=== PATIENT | female | born 1935 | race Caucasian/White ===

== ENCOUNTER 2018-01-20 10:20 | Outpatient (CLI) | payer OTHER ==
[~2018-01-20] VITALS: Ht 157.5 cm; Wt 69.1 kg
--- NOTE | ~2018-01-20 | EKG ---
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 : 1935 Requested By: Sergio Jackson Order Number: [id number] MD: Denver Robison Measurements Intervals [place] Rate: 64 P: 21 CO: 226 QRS: 41 QRSD: 103 T: 20 QT: 450 QTc: 465 Interpretive Statements Sinus rhythm Prolonged [place] interval Borderline low voltage, extremity leads Nonspecific ST segment abnormality Compared to ECG 01/20/2018 17:50:52 No significant changes Electronically Signed On 01-21-2018 8:40:14 TRAFFIC II MANAGER by Denver Robison [email or web address] <ELECTRONICALLY SIGNED> By: Denver Robison MD, [facility] 01/21/1840 9 9 Denver Robison MD, [facility] /EPI
--- NOTE | ~2018-01-20 | EKG ---
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: Chelsie LONGORIA : 1935 Requested By: Sergio Jackson Order Number: [id number] MD: Tj Miranda Measurements Intervals [place] Rate: 73 P: 50 TN: 244 QRS: 67 QRSD: 103 T: 21 QT: 437 QTc: 482 Interpretive Statements Sinus rhythm Prolonged TN interval Borderline low voltage, extremity leads Compared to ECG 01/20/2018 13:21:45 No significant changes Electronically Signed On 01-20-2018 21:43:12 ORNAMENTAL PLASTERER HELPER by Tj Miranda [email or web address] <ELECTRONICALLY SIGNED> By: Tj Miranda MD 01/20/18 2143 49 49 Tj Miranda MD /SUNDAY
--- NOTE | ~2018-01-20 | EKG ---
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: : 1935 Requested By: Sergio Jackson Order Number: [id number] MD: Denver Robison Measurements Intervals [place] Rate: 57 P: -3 VT: 248 QRS: 20 QRSD: 110 T: 10 QT: 482 QTc: 470 Interpretive Statements Sinus rhythm Prolonged [place] interval RSR' in V1 or V2, probably normal variant Compared to ECG 04/26/2012 00:32:14 Atrial fibrillation no longer present Electronically Signed On 01-20-2018 16:49:17 WAITER/WAITRESS by Denver Robison [email or web address] <ELECTRONICALLY SIGNED> By: Denver Robison MD, [facility] 01/20/18 1649 1321 1321 Denver Robison MD, FAC /EPI
--- NOTE | ~2018-01-20 | D ---
[facility] [place] [address] DISCHARGE SUMMARY Name: CYRUS WOLF Room #: DEP [facility] Yee#: [id number] Admission: 01/20/18 Attend Phys: Sergio Jackson MD Discharge: 01/21/18 Date of : 37 Report #: [id number] THIS REPORT FOR: //name// CC: Sergio Hannon FINAL DIAGNOSES: 1. Unstable angina, status post coronary angioplasty. 2. Paroxysmal atrial fibrillation. 3. Hypertension. 4. Gastroesophageal reflux disease. HOSPITAL COURSE: Please see the original H and P for full details. The patient presented with unstable angina. She describes a discomfort in the chest area with exertion. Please see the cardiac catheterization report for full details. She underwent placement of a stent into the ostial/proximal segment of the first diagonal artery. She has remained stable overnight. She will be on a short period of low dose aspirin, Plavix therapy and Xarelto. I did caution the patient regarding the risk of bleeding with these medications. Flecainide will be discontinued given her diagnosis of coronary artery disease. She remains in sinus rhythm. On final discharge, aspirin 81 mg, Plavix 75 mg. She will resume Xarelto 20 mg daily. She will start Lipitor 40 mg daily. She will continue Cardizem 240 mg daily. She will continue Prilosec. Flecainide is discontinued. <ELECTRONICALLY SIGNED> By: Sregio Jackson MD 01/22/18 0825 0839 0944 Sergio Jackson MD /bentley
--- NOTE | ~2018-01-20 | CATHLAB ---
[facility] [place] [address] INVASIVE PROCEDURE REPORT Name: MARYANNCYRUS Holguin Room #: 215-P [facility]#: [id number] Admission: 01/20/18 Attend Phys: Sergio Jackson MD Discharge: Date of : 37 Date of Service: 01/20/18 1641 Report #: [id number] THIS REPORT FOR: //name// APPROVED REPORT Study performed: 01/20/2018 12:18:56 Patient Details Patient Status: Out-Patient Room #: 215 The patient is a 83 year-old female Event Personnel Sergio Jackson Internet Cafe Manager, Patel Mcghee RN, Smith Mackey Part[place], Nancy RTR, PULP REFINER OPERATOR Monitor Procedures Performed Art Access - R femoral artery* Left Heart Cath w/or w/o Coronaries 2654455 [facility] 38317 Initial Mod Sed Same Phys/QHP Gr5y 719307 46082 Mod Sed Same Phys/QHP Ea 551446 [facility] Place w/wo Plasty Single DIAG 258853 Hemostasis w/ Mynx Indication Dyspnea, Unstable angina , Chest pain Risk Factors Hypercholesterolemia, Hypertension Procedure Narrative The Right Groin^ was infiltrated with 1% Lidocaine subcutaneous anesthesia. A PINNACLE 4FR Sheath #[id number] sheath was inserted into the RFA^. Coronary angiography was performed using coronary diagnostic catheters. The right coronary system was accessed and visualized with a JR4 catheter. The left coronary system was accessed and visualized with a JL4 catheter. The left ventricle was accessed and visualized with a ANGLED PIGTAIL catheter. Left ventricular/Aortic Valve gradient assessed via catheter pullback. Left ventriculogram was performed in 30 degree projection. Pre-demployment femoral angiogram was performed . Closure device was deployed with a 6 Fr MYNXGRIP 6/7F #[id number]. There was no hematoma. Intraoperative Conscious Sedation Sedation start time: 13:45 Case end Time: 15:07 Fentanyl 75 mcg Versed 2 mg [facility] [place] [address] INVASIVE PROCEDURE REPORT Name: CYRUS WOLF Room #: 215-P [facility]#: [id number] Admission: 01/20/18 Attend Phys: Sergio Jackson MD Discharge: Date of : 37 Date of Service: 01/20/18 1641 Report #: [id number] Fluoro Time: 12.40 minutes Dose: DAP 44886.10 cGycm2 1707 mGy Contrast Type and Amount: Omnipaque 160 ml Coronary Angiography The patient's coronary anatomy is right dominant. Diagnostic Cath Left Main This is a patent vessel, with no flow-limiting lesions. LAD This is a moderate size caliber vessel, traversing the anterior wall and wrapping around the apex. There is mild diffuse disease in the proximal segment, 20%. Diagonal 1 This is a moderate size caliber vessel, with a high takeoff off the LAD. There is an ostial stenosis of 70%. Diagonal 2 This is a small-caliber vessel, with no flow-limiting lesions. Circumflex This is a moderate size caliber vessel, with mild disease in the proximal segment, 20%. OM1 This is a moderate size caliber vessel, with no flow-limiting lesions. Right Coronary This is a dominant vessel with mild disease in the proximal segment, 10%. R PDA This is a patent vessel, with no flow-limiting lesions. RPLV This is a patent vessel, with no flow-limiting lesions. Left Ventriculography The left ventricle is normal in size with normal contractility. The left ventricular ejection fraction is estimated to be >55%. Hemodynamics The aortic pressure is 151/94 mmHg with a mean of 114 mmHg. The left ventricular pressure is 205/16 mmHg with a mean of mmHg. The left ventricular end diastolic pressure is 27 mmHg. PCI Technique Lesion Anticoagulation was achieved with Angiomax. Percutaneous coronary intervention was performed on the first diagnonal branch segment. The lesion stenosis prior to intervention was 70% with NIKHIL 3 flow. A Luge Wire .014 x 182CM #[id number] Guide Catheter was used to engage the ostium. A VISTA 6FR JL4 #[id number] Interventional Guidewire was used to cross the lesion. [address] [address] INVASIVE PROCEDURE REPORT Name: CYRUS WOLF Room #: 215-P [facility]..#: [id number] Admission: 01/20/18 Attend Phys: Sergio Jackson MD Discharge: Date of : 37 Date of Service: 01/20/18 1641 Report #: [id number] BALLOON DILATION A Balloon catheter Euphora RX 2.5 x 12 #[id number] was inserted and inflated up to 6.00atm for 11seconds. Additional Inflation: 6.00atm for 10seconds. Additional Inflation: 6.00atm for 13seconds. STENT DEPLOYMENT A drug-eluting stent RESOLUTE BOBBY RX 2.5 X 12 #[id number] was inserted and inflated up to 14.00atm for 51seconds. POST STENT DEPLOYMENT BALLOON DILATION A Balloon catheter TREK NC RX 2.5 X 8 #[id number] was inserted and inflated up to 18.00atm for 21seconds. Additional Inflation: 12.00atm for 9seconds. Additional Inflation: 16.00atm for 15seconds. Final angiography reveals 5 % stenosis with NIKHIL 3 flow. Conclusion 1. Successful insertion of a drug-eluting stent into the ostial/proximal stenosis of the first diagonal artery. 2. Mild disease in the LAD and RCA. 3. Normal LV systolic function. 4. Recommend dual antiplatelet therapy and aggressive risk factor management. <ELECTRONICALLY SIGNED> By: Sergio Jackson MD 01/20/181640 40 40 Sergio Jackson MD /INF
[~2018-01-20 10:20] MED LIST: AMOXICILLIN875 MG PO; ASPIRIN EC81 M1 PO; ATENOLOL 50MG T50 MG PO; ATORVASTATIN CA10 MG PO; CALCIUM 600 +1 EA11 PO; CARDIZEM CD240 MG PO; CLARITIN10 MG PO; ENOXAPARIN80 MG/0.8 SQ; FISH OIL + VIT1 EACH PO; FISH OIL 1,2001 EAC4 PO; FLECAINIDE ACET50 M1 PO; ILOTYCIN1 GM TOP; JANTOVEN5 MG PO; KEFLEX250 MG; KLOR-CON 1010 MEQ OR; LOPRESSOR 50 MG50 M1 PO; LORTAB; LOVASTAT40 OR; MEDROL2 MG; NORCO 5-325 TA1 EACH PO; OCUVITE TABLET1 EAC1 PO; OMEPRAZOLE 20 M20 M1 PO; PROTONIX40 M2 IR; TOPROL XL50 MG OR; TOPROL XL50 MG PO; TRIAMTERENE-HC1 EAC1 PO; TRIAMTERENE-HC1 EAC3 OR; VIACTIV MULTI-1 EACH PO; XARELTO20 MG PO
[2018-01-20 12:40] VITALS: BP 166/67
[2018-01-20] MEDS ORDERED: FOSAMAX 70 MG T70 MG PO (12:48)
[2018-01-20 15:30] VITALS: BP 140/75
[2018-01-20 20:15] VITALS: BP 102/53
[2018-01-20 23:50] VITALS: BP 102/62
[2018-01-21 03:38] LABS: ALBUMIN 3.1 g/dL (3.4-5.0); ANION GAP 7 mmol/L (7-16); BUN 17 mg/dL (7-18); CALCIUM 8.3 mg/dL (8.5-10.1); CHLORIDE 105 mmol/L (98-107); CO2 26 mmol/L (21-32); CREATININE 0.8 mg/dL (0.6-1.0); GLUCOSE 101 mg/dL (74-106); POTASSIUM 3.6 mmol/L (3.5-5.1); SGOT 11 U/L (15-37); SGPT 14 U/L (30-65); SODIUM 138 mmol/L (136-145); TOTAL BILIRUBIN 0.4 mg/dL (<0.1-1.0); TROPONIN-I <0.06 ng/mL (<0.06)
[2018-01-21 04:30] VITALS: BP 125/50
[2018-01-21 05:34] LABS: HEMATOCRIT 36.5 % (37.0-47.0); HEMOGLOBIN 11.9 gm/dL (12.0-15.0); MCH 27.2 pg (26.0-34.0); MCHC 32.7 g/dL (28.0-37.0); MCV 83.2 fL (80.0-100.0); RBC 4.38 mil/uL (4.20-5.00); RDW 14.9 % (10.5-14.5); WBC 10.2 thou/uL (4.0-11.0)
[2018-01-21] MEDS ORDERED: CLOPIDOGREL75 MG PO (08:23)
[2018-01-21] MEDS ORDERED: ASPIR 8181 MG PO (08:24)
[2018-01-21] MEDS ORDERED: ATORVASTATIN CA80 MG PO (08:24)
[2018-01-21 08:33] VITALS: BP 133/69
[2018-01-21 08:55] VITALS: BP 133/69
== END 2018-01-21 11:20 | disposition home or self-care (01) ==
LOC: CATH 10:20 → 2N 16:01 → ENTRNSPT 01-21 11:03 → EDTRNSPTSTS 01-21 11:05 → CATH 01-21 11:20
PROVIDERS: Internal Medicine Cardiovascular Disease
DX: I25.110 Atherosclerotic heart disease of native coronary artery with unstable angina pectoris (principal); I10 Essential (primary) hypertension; E78.5 Hyperlipidemia, unspecified; I48.91 Unspecified atrial fibrillation; M19.90 Unspecified osteoarthritis, unspecified site; Z98.890 Other specified postprocedural states; Z79.891 Long term (current) use of opiate analgesic; Z79.01 Long term (current) use of anticoagulants; Z79.899 Other long term (current) drug therapy; K21.9 Gastro-esophageal reflux disease without esophagitis; Z95.5 Presence of coronary angioplasty implant and graft; Z79.82 Long term (current) use of aspirin
CPT/HCPCS: 10081

== ENCOUNTER → 2019-02-26 | Outpatient (CLI) | payer OTHER ==
[~2019-02-26] MED LIST changes: +ASPIR 8181 MG PO; +ATORVASTATIN CA80 MG PO; +CLOPIDOGREL75 MG PO; +FOSAMAX 70 MG T70 MG PO
== END ==
LOC: SJCVC 14:33
DX: I44.0 Atrioventricular block, first degree (principal); I25.10 Atherosclerotic heart disease of native coronary artery without angina pectoris; I48.0 Paroxysmal atrial fibrillation; E78.00 Pure hypercholesterolemia, unspecified; K21.9 Gastro-esophageal reflux disease without esophagitis; I10 Essential (primary) hypertension; E78.5 Hyperlipidemia, unspecified; M81.0 Age-related osteoporosis without current pathological fracture; Z79.82 Long term (current) use of aspirin; Z79.899 Other long term (current) drug therapy

== ENCOUNTER → 2019-06-30 | Outpatient (CLI) | payer OTHER ==
[~2019-06-30] MED LIST changes: +ZYRTEC10 M5 PO
== END ==
LOC: SJCVCIMAG 07:09
DX: I49.3 Ventricular premature depolarization (principal); R53.83 Other fatigue; I10 Essential (primary) hypertension; E78.5 Hyperlipidemia, unspecified; I48.19 Other persistent atrial fibrillation; I25.10 Atherosclerotic heart disease of native coronary artery without angina pectoris; E78.00 Pure hypercholesterolemia, unspecified; M19.90 Unspecified osteoarthritis, unspecified site; M81.0 Age-related osteoporosis without current pathological fracture; Z82.49 Family history of ischemic heart disease and other diseases of the circulatory system; Z79.82 Long term (current) use of aspirin; Z79.01 Long term (current) use of anticoagulants; Z79.899 Other long term (current) drug therapy; Z88.8 Allergy status to other drugs, medicaments and biological substances

== ENCOUNTER 2019-07-06 11:22 | Emergency (ER) | payer OTHER ==
[~2019-07-06] VITALS: Ht 157.5 cm; Wt 79.4 kg
[~2019-07-06 11:22] MED LIST changes: -ZYRTEC10 M5 PO
[2019-07-06] MEDS ORDERED: ZYRTEC10 M5 PO (11:43)
[2019-07-06 13:10] LABS: HEMATOCRIT 36.4 % (37.0-47.0); HEMOGLOBIN 11.9 gm/dL (12.0-15.0); MCH 26.4 pg (26.0-34.0); MCHC 32.7 g/dL (28.0-37.0); MCV 80.8 fL (80.0-100.0); PLATELET COUNT 229 thou/uL (150-400); RDW 17.5 % (10.5-14.5); WBC 7.1 thou/uL (4.0-11.0)
[2019-07-06 13:13] LABS: ANION GAP 8 mmol/L (7-16); BUN 17 mg/dL (7-18); CALCIUM 8.5 mg/dL (8.5-10.1); CHLORIDE 105 mmol/L (98-107); CO2 28 mmol/L (21-32); CREATININE 1.5 mg/dL (0.6-1.0); GLUCOSE 131 mg/dL (74-106); POTASSIUM 3.4 mmol/L (3.5-5.1); SODIUM 141 mmol/L (136-145)
[2019-07-06 13:23] LABS: ALBUMIN 3.3 g/dL (3.4-5.0); DIRECT BILIRUBIN < 0.1 mg/dL (<0.1-0.2); SGOT 26 U/L (15-37); SGPT 26 U/L (30-65); TOTAL BILIRUBIN 0.6 mg/dL (<0.1-1.0); TROPONIN-I <0.06 ng/mL (<0.06)
[2019-07-06 14:33] LABS: ABSOLUTE NEUTROPHILS 3.8 thou/uL (1.4-8.2); ATYPICAL LYMPHS 5 %
--- NOTE | 2019-07-06 14:33 | EKG ---
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: destinee : 1935 Requested By: Janki Roberts Order Number: [id number] MD: Sergio Jackson Measurements Intervals [place] Rate: 68 P: 5 AR: 202 QRS: -18 QRSD: 105 T: 14 QT: 424 QTc: 451 Interpretive Statements Sinus rhythm Borderline left axis deviation Compared to ECG 01/21/2018 06:40:22 First degree AV block no longer present ST (T wave) deviation no longer present Electronically Signed On 07-06-2019 14:30:57 CDT by Sergio Jackson [email or web address] <ELECTRONICALLY SIGNED> By: Sergio Jackson MD 07/06/19 1430 1315 14 Sergio Jackson MD /SUNDAY
[2019-07-06 14:34] LABS: ANISOCYTOSIS 1+; OVALOCYTES 1+
[2019-07-06 14:35] LABS: MICROCYTES FEW
[2019-07-06 15:22] LABS: URINE BILIRUBIN 1+ (Negative); URINE BLOOD NEGATIVE (Negative); URINE CLARITY CLEAR; URINE COLOR YELLOW; URINE GLUCOSE-RANDOM* NEGATIVE (Negative); URINE KETONES TRACE (Negative); URINE LEUKOCYTES-REFLEX TRACE (Negative); URINE NITRITE-REFLEX NEGATIVE (Negative); URINE PROTEIN (DIPSTICK) TRACE (Negative); URINE SPECIFIC GRAVITY 1.025 (1.005-1.035); URINE UROBILINOGEN 0.2 E.U./dl (0.2-1.0)
[2019-07-06 15:56] VITALS: BP 105/60
== END 2019-07-06 15:57 | disposition home or self-care (01) ==
LOC: ER 11:22
PROVIDERS: Emergency Medicine
DX: N28.9 Disorder of kidney and ureter, unspecified (principal); R06.00 Dyspnea, unspecified; R53.1 Weakness; K21.9 Gastro-esophageal reflux disease without esophagitis; E78.5 Hyperlipidemia, unspecified; M19.90 Unspecified osteoarthritis, unspecified site; I10 Essential (primary) hypertension; I48.91 Unspecified atrial fibrillation; Z79.899 Other long term (current) drug therapy

== ENCOUNTER 2019-10-02 16:56 | Emergency (ER) | payer OTHER ==
[~2019-10-02] VITALS: Ht 157.5 cm; Wt 61.2 kg
[~2019-10-02 16:56] MED LIST changes: +ZYRTEC10 M5 PO
[2019-10-02] MEDS ORDERED: MEDROLDOSEPACK PO (19:19)
[2019-10-02 19:35] VITALS: BP 123/53
== END 2019-10-02 19:35 | disposition home or self-care (01) ==
LOC: ER 16:56
DX: M25.552 Pain in left hip (principal); I10 Essential (primary) hypertension; E78.5 Hyperlipidemia, unspecified; K21.9 Gastro-esophageal reflux disease without esophagitis; I48.91 Unspecified atrial fibrillation; M19.90 Unspecified osteoarthritis, unspecified site; Z79.82 Long term (current) use of aspirin; Z79.899 Other long term (current) drug therapy; Z90.89 Acquired absence of other organs; Z98.890 Other specified postprocedural states

== ENCOUNTER → 2019-11-25 | Outpatient (CLI) | payer OTHER ==
[~2019-11-25] MED LIST changes: +MEDROLDOSEPACK PO
== END ==
LOC: SJCVC 11:43
PROVIDERS: ATTEND Internal Medicine Cardiovascular Disease
DX: I44.0 Atrioventricular block, first degree (principal); I25.10 Atherosclerotic heart disease of native coronary artery without angina pectoris; I11.9 Hypertensive heart disease without heart failure; I48.0 Paroxysmal atrial fibrillation; E78.00 Pure hypercholesterolemia, unspecified; R53.83 Other fatigue; R06.00 Dyspnea, unspecified; E78.5 Hyperlipidemia, unspecified

== ENCOUNTER → 2020-05-27 | Outpatient (CLI) | payer OTHER | LOC: SJCVC 11:21 | PROVIDERS: ATTEND Internal Medicine Cardiovascular Disease | DX: I44.0 Atrioventricular block, first degree (principal); I25.10 Atherosclerotic heart disease of native coronary artery without angina pectoris; I10 Essential (primary) hypertension; E78.00 Pure hypercholesterolemia, unspecified; R06.00 Dyspnea, unspecified; K21.9 Gastro-esophageal reflux disease without esophagitis; E78.5 Hyperlipidemia, unspecified; M81.0 Age-related osteoporosis without current pathological fracture; Z72.89 Other problems related to lifestyle; Z79.899 Other long term (current) drug therapy; Z88.8 Allergy status to other drugs, medicaments and biological substances ==

== ENCOUNTER → 2020-06-10 | Outpatient (CLI) | payer OTHER | LOC: SJCVC 11:00 | PROVIDERS: ATTEND Internal Medicine Cardiovascular Disease | DX: E78.00 Pure hypercholesterolemia, unspecified (principal); K21.9 Gastro-esophageal reflux disease without esophagitis; I48.20 Chronic atrial fibrillation, unspecified; I10 Essential (primary) hypertension; M15.9 Polyosteoarthritis, unspecified; E78.5 Hyperlipidemia, unspecified; B02.9 Zoster without complications; M81.0 Age-related osteoporosis without current pathological fracture; R60.9 Edema, unspecified; I25.10 Atherosclerotic heart disease of native coronary artery without angina pectoris; Z72.89 Other problems related to lifestyle; Z85.72 Personal history of non-Hodgkin lymphomas; Z79.899 Other long term (current) drug therapy; Z88.8 Allergy status to other drugs, medicaments and biological substances ==

== ENCOUNTER → 2020-11-28 | Outpatient (CLI) | payer OTHER | LOC: SJCVCIMAG 12:38 | PROVIDERS: ATTEND Internal Medicine Cardiovascular Disease | DX: R94.31 Abnormal electrocardiogram [ECG] [EKG] (principal); I08.8 Other rheumatic multiple valve diseases; I44.0 Atrioventricular block, first degree; I48.0 Paroxysmal atrial fibrillation; I25.10 Atherosclerotic heart disease of native coronary artery without angina pectoris; E78.00 Pure hypercholesterolemia, unspecified; I10 Essential (primary) hypertension; R06.00 Dyspnea, unspecified; Z88.8 Allergy status to other drugs, medicaments and biological substances; Z79.899 Other long term (current) drug therapy; M19.90 Unspecified osteoarthritis, unspecified site; K21.9 Gastro-esophageal reflux disease without esophagitis; E78.5 Hyperlipidemia, unspecified; M81.0 Age-related osteoporosis without current pathological fracture; H35.30 Unspecified macular degeneration; C85.90 Non-Hodgkin lymphoma, unspecified, unspecified site; Z82.49 Family history of ischemic heart disease and other diseases of the circulatory system; Z72.89 Other problems related to lifestyle ==

== ENCOUNTER → 2020-12-26 | Outpatient (CLI) | payer OTHER | LOC: SJCVC 11:38 | PROVIDERS: ATTEND Internal Medicine Cardiovascular Disease | DX: I48.0 Paroxysmal atrial fibrillation (principal); I25.10 Atherosclerotic heart disease of native coronary artery without angina pectoris; I10 Essential (primary) hypertension; E78.00 Pure hypercholesterolemia, unspecified; K21.9 Gastro-esophageal reflux disease without esophagitis; R60.9 Edema, unspecified; E78.5 Hyperlipidemia, unspecified; M81.0 Age-related osteoporosis without current pathological fracture; Z72.89 Other problems related to lifestyle; Z88.8 Allergy status to other drugs, medicaments and biological substances; Z79.899 Other long term (current) drug therapy ==

== ENCOUNTER 2021-01-05 01:51 | Emergency (ER) | payer OTHER ==
[~2021-01-05] VITALS: Ht 157.5 cm; Wt 63.5 kg
[2021-01-05 03:13] LABS: HEMATOCRIT 35.3 % (37.0-47.0); HEMOGLOBIN 11.2 gm/dL (12.0-15.0); MCH 24.7 pg (26.0-34.0); MCHC 31.7 g/dL (28.0-37.0); RBC 4.53 mil/uL (4.20-5.00); RDW 16.7 % (10.5-14.5); WBC 12.2 thou/uL (4.0-11.0)
[2021-01-05 03:28] LABS: CALCIUM 8.4 mg/dL (8.5-10.1); CREATININE 1.4 mg/dL (0.6-1.0); POTASSIUM 3.1 mmol/L (3.5-5.1)
[2021-01-05 03:33] LABS: ALBUMIN 3.4 g/dL (3.4-5.0); TOTAL BILIRUBIN 0.4 mg/dL (0.2-1.0); TOTAL PROTEIN 6.7 g/dL (6.4-8.2)
[2021-01-05 04:27] LABS: URINE BILIRUBIN NEGATIVE (Negative); URINE BLOOD NEGATIVE (Negative); URINE CLARITY CLEAR; URINE COLOR YELLOW; URINE GLUCOSE-RANDOM* NEGATIVE (Negative); URINE KETONES NEGATIVE (Negative); URINE LEUKOCYTES-REFLEX NEGATIVE (Negative); URINE NITRITE-REFLEX NEGATIVE (Negative); URINE PROTEIN (DIPSTICK) NEGATIVE (Negative); URINE UROBILINOGEN 0.2 E.U./dl (0.2-1.0)
[2021-01-05 04:40] VITALS: BP 140/75
== END 2021-01-05 04:40 | disposition home or self-care (01) ==
LOC: ER 01:51
PROVIDERS: Emergency Medicine
DX: M62.838 Other muscle spasm (principal); M25.551 Pain in right hip; M79.651 Pain in right thigh; I10 Essential (primary) hypertension; E78.5 Hyperlipidemia, unspecified; K21.9 Gastro-esophageal reflux disease without esophagitis; I48.91 Unspecified atrial fibrillation; M19.90 Unspecified osteoarthritis, unspecified site; Z90.89 Acquired absence of other organs; Z85.858 Personal history of malignant neoplasm of other endocrine glands; Z79.82 Long term (current) use of aspirin; Z79.899 Other long term (current) drug therapy; Z79.891 Long term (current) use of opiate analgesic

== ENCOUNTER → 2021-01-16 | Outpatient (CLI) | payer OTHER | LOC: SJCVC 13:22 | PROVIDERS: ATTEND Internal Medicine Cardiovascular Disease | DX: R94.31 Abnormal electrocardiogram [ECG] [EKG] (principal); I25.10 Atherosclerotic heart disease of native coronary artery without angina pectoris; R00.2 Palpitations; I48.0 Paroxysmal atrial fibrillation; K21.9 Gastro-esophageal reflux disease without esophagitis; E78.5 Hyperlipidemia, unspecified; I10 Essential (primary) hypertension; E78.00 Pure hypercholesterolemia, unspecified; Z88.8 Allergy status to other drugs, medicaments and biological substances; Z79.899 Other long term (current) drug therapy; Z72.89 Other problems related to lifestyle ==

== ENCOUNTER 2021-02-13 05:55 | Emergency (ER) | payer OTHER ==
[~2021-02-13] VITALS: Ht 157.5 cm; Wt 61.2 kg
[2021-02-13 07:33] LABS: CALCIUM 11.1 mg/dL (8.5-10.1); CREATININE 1.3 mg/dL (0.6-1.0)
[2021-02-13 07:44] LABS: ALBUMIN 3.6 g/dL (3.4-5.0); TOTAL BILIRUBIN 0.8 mg/dL (0.2-1.0); TOTAL PROTEIN 7.3 g/dL (6.4-8.2)
[2021-02-13 07:51] LABS: ABSOLUTE NEUTROPHILS 11.1 thou/uL (1.4-8.2); BASOPHILS 0.7 % (0.0-2.0); EOSINOPHILS 0.6 % (0.0-3.0); HEMATOCRIT 41.2 % (37.0-47.0); LYMPHOCYTES 8.4 % (24.0-44.0); MCH 25.3 pg (26.0-34.0); MCHC 31.6 g/dL (28.0-37.0); MONOCYTES 8.6 % (1.0-8.0); PLATELET COUNT 295 thou/uL (150-400); POLYS 81.7 % (36.0-66.0); RBC 5.15 mil/uL (4.20-5.00); RDW 17.2 % (10.5-14.5); WBC 13.6 thou/uL (4.0-11.0)
[2021-02-13] MEDS ORDERED: LISINOPRIL5 MG PO (10:10)
[2021-02-13 11:53] VITALS: BP 167/85
--- NOTE | 2021-02-13 12:55 | EKG ---
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 : 1935 Requested By: Neno Schneider Order Number: [id number] MD: Lenny Avelar Measurements Intervals [place] Rate: 70 P: 0 IA: 171 QRS: -11 QRSD: 94 T: 31 QT: 474 QTc: 512 Interpretive Statements Sinus rhythm RSR' in V1 or V2, probably normal variant Prolonged QT interval Baseline wander in lead(s) V4 Compared to ECG 07/06/2019 13:15:32 RSR' in V1 or V2 now present Prolonged QT interval now present Electronically Signed On 02-13-2021 12:55:10 GRANITE POLISHER MACHINE by Lenny Avelar [email or web address] <ELECTRONICALLY SIGNED> By: Lenny Avelar MD, [facility] 02/13/21 1255 0606 0606 Lenny Avelar MD, [facility] /EPI
== END 2021-02-13 11:50 | disposition home or self-care (01) ==
LOC: ER 05:55
PROVIDERS: Emergency Medicine
DX: I10 Essential (primary) hypertension (principal); R10.13 Epigastric pain; K21.9 Gastro-esophageal reflux disease without esophagitis; E78.5 Hyperlipidemia, unspecified; M19.90 Unspecified osteoarthritis, unspecified site; Z90.89 Acquired absence of other organs; Z79.899 Other long term (current) drug therapy

== ENCOUNTER → 2021-02-22 | Outpatient (CLI) | payer OTHER ==
[~2021-02-22] MED LIST changes: +LISINOPRIL5 MG PO
== END ==
LOC: SJCVC 14:27
PROVIDERS: ATTEND Internal Medicine Cardiovascular Disease
DX: R00.1 Bradycardia, unspecified (principal); I48.0 Paroxysmal atrial fibrillation; I25.10 Atherosclerotic heart disease of native coronary artery without angina pectoris; I10 Essential (primary) hypertension; R00.2 Palpitations; K21.9 Gastro-esophageal reflux disease without esophagitis; E78.5 Hyperlipidemia, unspecified; Z88.0 Allergy status to penicillin; Z79.899 Other long term (current) drug therapy; Z72.89 Other problems related to lifestyle; Z82.49 Family history of ischemic heart disease and other diseases of the circulatory system